=== PATIENT | female | born 1945 | race Caucasian/White ===

== ENCOUNTER → 2018-10-19 | Outpatient (CLI) | payer MEDICARE, MEDICAID ==
[~2018-10-19] MED LIST: ALBU8.5H2 IH; ALN70T PO; ALPR.5T PO; AMIT25TA9 PO; AMOX500C2 PO; ASP325T PO; ASP81TEC PO; BUDE10.22 IH; CALC-656 PO; CALC-760 PO; CARV6.252 PO; CHOL500019 PO; CITA-105 PO; CYCL5TAB11 PO; FLUO10CA29 PO; FRS325T PO; FURO20TA4 PO; HCTZ12.5T PO; HYDR-700 PO; LISI5TAB PO; LORA10TA7 PO; LVT.05T PO; MAGN400C PO; MELO-195 PO; MEMA10TA PO; METO-351 PO; PRD20T PO; RANI75TA30 PO; SIMV20TA3 PO; TR1O15 TOP; TRM50T PO
[2018-10-19 08:30] LABS: CREATININE SERUM 1.67 MG/DL (0.60-1.30); POTASSIUM 3.6 MMOL/L (3.6-5.0)
[2018-10-19 08:31] LABS: ALBUMIN 3.5 GM/DL (3.2-4.5); BILIRUBIN,TOTAL 0.4 MG/DL (0.1-1.0); CALCIUM 8.7 MG/DL (8.5-10.1)
== END ==
LOC: LAB 07:54
PROVIDERS: ATTEND Physician Assistant
DX: I25.10 Atherosclerotic heart disease of native coronary artery without angina pectoris (principal); I11.0 Hypertensive heart disease with heart failure; I50.9 Heart failure, unspecified; E78.5 Hyperlipidemia, unspecified
CPT/HCPCS: 36415; 80053; 80061

== ENCOUNTER → 2018-10-29 | Outpatient (CLI) | payer MEDICARE, MEDICAID ==
[2018-10-29 07:58] LABS: CREATININE SERUM 1.85 MG/DL (0.60-1.30)
== END ==
LOC: LAB 07:00
PROVIDERS: ATTEND Physician Assistant
DX: I72.8 Aneurysm of other specified arteries (principal); I25.10 Atherosclerotic heart disease of native coronary artery without angina pectoris; I11.0 Hypertensive heart disease with heart failure; I50.9 Heart failure, unspecified; R06.00 Dyspnea, unspecified; E78.5 Hyperlipidemia, unspecified
CPT/HCPCS: 36415; 82565; 84520

== ENCOUNTER → 2018-11-06 | Outpatient (CLI) | payer MEDICARE, MEDICAID ==
[2018-10-29 07:58] LABS: CREATININE SERUM 1.85 MG/DL (0.60-1.30)
[2018-11-06 08:09] LABS: CREATININE SERUM 1.9 MG/DL (0.60-1.30)
== END ==
LOC: RAD 10-29 07:26
PROVIDERS: ATTEND Physician Assistant
DX: I72.8 Aneurysm of other specified arteries (principal); I25.10 Atherosclerotic heart disease of native coronary artery without angina pectoris; I11.0 Hypertensive heart disease with heart failure; E78.2 Mixed hyperlipidemia; I50.9 Heart failure, unspecified
CPT/HCPCS: 36415; 82565; 84520